=== PATIENT | male | born 1965 | race Two or more races ===

== ENCOUNTER 2020-10-07 14:39 | Outpatient (CLI) | payer OTHER | END 2020-10-07 14:49 | disposition home or self-care (01) | LOC: RAD 14:39 | PROVIDERS: ATTEND Specialist | DX: M25.50 Pain in unspecified joint (principal); M17.12 Unilateral primary osteoarthritis, left knee ==

== ENCOUNTER 2020-11-29 12:33 | Outpatient (CLI) | payer OTHER | END 2020-11-29 13:00 | disposition home or self-care (01) | LOC: RAD 12:33 | PROVIDERS: ATTEND Physical Medicine & Rehabilitation | DX: M54.5 Low back pain (principal); M25.561 Pain in right knee; R22.42 Localized swelling, mass and lump, left lower limb; M17.11 Unilateral primary osteoarthritis, right knee ==

== ENCOUNTER 2020-12-07 14:11 | Outpatient (CLI) | payer OTHER | END 2020-12-07 14:12 | disposition home or self-care (01) | LOC: SONOGRAMA 14:11 | PROVIDERS: ATTEND Physical Medicine & Rehabilitation | DX: S93.492A Sprain of other ligament of left ankle, initial encounter (principal); R22.42 Localized swelling, mass and lump, left lower limb ==

== ENCOUNTER → 2020-12-15 10:19 | Outpatient (CLI) | payer OTHER | END | disposition home or self-care (01) | LOC: LAB 10:19 | PROVIDERS: ATTEND Radiology Diagnostic Radiology | DX: D21.22 Benign neoplasm of connective and other soft tissue of left lower limb, including hip (principal) ==

== ENCOUNTER 2020-12-21 09:45 | Outpatient (CLI) | payer OTHER | END 2020-12-21 10:08 | disposition home or self-care (01) | LOC: MRI 09:45 | PROVIDERS: ATTEND Physical Medicine & Rehabilitation | DX: D21.22 Benign neoplasm of connective and other soft tissue of left lower limb, including hip (principal) | CPT/HCPCS: 73718 ==

== ENCOUNTER 2021-01-25 08:00 | Outpatient (CLI) | payer OTHER | END 2021-01-25 08:30 | disposition home or self-care (01) | LOC: PPH VACUNA 08:00 | DX: Z23 Encounter for immunization (principal) ==

== ENCOUNTER 2021-02-16 07:45 | Outpatient (CLI) | payer OTHER | END 2021-02-16 08:06 | disposition home or self-care (01) | LOC: TOM 07:45 | PROVIDERS: ATTEND Internal Medicine Hematology & Oncology | DX: R07.89 Other chest pain (principal); R10.84 Generalized abdominal pain ==

== ENCOUNTER 2021-03-30 09:32 | Emergency (ER) | payer OTHER ==
[~2021-03-30] VITALS: Ht 180.3 cm; Wt 114.8 kg
[2021-03-30] MEDS ORDERED: DAILY VALUE1 EACH PO (09:48)
[2021-03-30] MEDS ORDERED: PAXIL20 MG PO (09:48)
[2021-03-30] MEDS ORDERED: TIROSINT25 MCG PO (09:49)
[2021-03-30] MEDS ORDERED: TRANXENE T-TAB7.5 MG PO (09:49)
== END 2021-03-30 11:00 | disposition home or self-care (01) ==
LOC: ER 09:32
DX: C79.89 Secondary malignant neoplasm of other specified sites (principal)

== ENCOUNTER 2021-10-19 08:00 | Outpatient (CLI) | payer OTHER ==
[~2021-10-19 08:00] MED LIST: DAILY VALUE1 EACH PO; PAXIL20 MG PO; TIROSINT25 MCG PO; TRANXENE T-TAB7.5 MG PO
== END 2021-10-19 08:10 | disposition home or self-care (01) ==
LOC: PPH VACUNA 08:00
PROVIDERS: ATTEND Emergency Medicine Pediatric Emergency Medicine
DX: Z23 Encounter for immunization (principal)

== ENCOUNTER 2022-05-11 10:19 | Outpatient (CLI) | payer OTHER | END 2022-05-11 10:29 | disposition home or self-care (01) | LOC: PPH VACUNA 10:19 | PROVIDERS: ATTEND Emergency Medicine Pediatric Emergency Medicine | DX: Z23 Encounter for immunization (principal) ==

== ENCOUNTER 2022-11-19 12:52 | Outpatient (CLI) | payer OTHER | END 2022-11-19 13:02 | disposition home or self-care (01) | LOC: RAD 12:52 | PROVIDERS: ATTEND Physical Medicine & Rehabilitation | DX: M25.562 Pain in left knee (principal); M54.59 Other low back pain ==

== ENCOUNTER 2022-12-03 12:41 | Outpatient (CLI) | payer OTHER | END 2022-12-03 12:47 | disposition home or self-care (01) | LOC: SONOGRAMA 12:41 | PROVIDERS: ATTEND Internal Medicine Endocrinology, Diabetes & Metabolism | DX: E04.8 Other specified nontoxic goiter (principal) ==

== ENCOUNTER 2023-03-29 16:11 | Outpatient (CLI) | payer OTHER | END 2023-03-29 16:22 | disposition home or self-care (01) | LOC: RAD 16:11 | PROVIDERS: ATTEND Specialist | DX: M25.572 Pain in left ankle and joints of left foot (principal); Z08 Encounter for follow-up examination after completed treatment for malignant neoplasm ==

== ENCOUNTER 2024-07-04 14:15 | Emergency (ER) | payer OTHER ==
[~2024-07-04] VITALS: Ht 182.9 cm; Wt 122.5 kg
[2024-07-04] MEDS ORDERED: METFORMIN HCL500 M4 PO (14:47)
[2024-07-04] MEDS ORDERED: ECOTRIN81 MG PO (14:48)
[2024-07-04] MEDS ORDERED: ACETAMINOPHEN 500 MG GEL..CAP PO ONE (14:51)
[2024-07-04] MEDS ORDERED: GUAIFENESIN 200 MG/10 ML BLIST.PACK PO ONE ×2 (15:45→15:54)
[2024-07-04 16:23] LABS: HEMATOCRIT 40.8 % (39.0-48.0); HEMOGLOBIN 14.1 g/dL (13-16.00); MEAN CELL VOLUME 89.9 fL (80.0-100.00); MEAN CORPUSCULAR HGB CONC 34.5 g/dl (32.0-36.0); PLATELET COUNT 239 K/uL (150-450); RED BLOOD COUNT 4.54 M/uL (4.00-6.00); RED CELL DISTRIBUTION WIDTH 13.9 % (11.5-14.5)
== END 2024-07-04 17:36 | disposition home or self-care (01) ==
LOC: ER 14:17
PROVIDERS: General Practice
DX: B34.9 Viral infection, unspecified (principal); Z88.8 Allergy status to other drugs, medicaments and biological substances; J45.909 Unspecified asthma, uncomplicated; C41.9 Malignant neoplasm of bone and articular cartilage, unspecified; Z20.822 Contact with and (suspected) exposure to COVID-19; E11.9 Type 2 diabetes mellitus without complications; Z79.84 Long term (current) use of oral hypoglycemic drugs